=== PATIENT | female | born 2000 | race Caucasian/White ===

== ENCOUNTER 2024-11-29 10:26 | Day surgery (SDC) | payer MEDICAID, SELFPAY ==
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
[2024-11-28 14:21] VITALS: BP 115/70; PULSE 67; RESP 16; TEMP 36.1; O2SAT 96
[2024-11-28 14:25] VITALS: BP 107/55; BP 115/70; PULSE 63; RESP 16; O2SAT 98
[2024-11-29] VITALS (7 sets, daily range): BP systolic 102–124; BP diastolic 57–70; PULSE 50–76; RESP 12–16; TEMP 36.1; O2SAT 94–98; BMI 45.9
[2024-11-29 11:03] LABS: Internal QC Validated? YES +Cl - CLEAR BKGD; Pregnancy, Urine Negative Negative; Record Kit Lot#,Urine Preg 0000962302
[2024-11-29 11:07] LABS: Hematocrit 39.3 % (37-47); Hemoglobin 13.4 g/dL (12.0-15.0); Mean Corp Hgb Conc 34.1 g/dL (32-36); Mean Corpuscular Volume 87.5 fL (81-99); Mean Platelet Vol. 9.3 fl (6.2-12.0); Platelet Count 336 K/mm3 (150-450); RBC Distribution Width CV 13.1 % (11.6-14.6); RBC Distribution Width SD 42.0 fl (35.1-43.9); Red Blood Count 4.49 M/mm3 (4.2-5.4); White Blood Count 9.5 K/mm3 (4.4-11.0)
[2024-11-29] MEDS: Lactated Ringers 1,000 ML 15 ML IV ×2 (11:12→13:04)
[2024-11-29] MEDS: Ketorolac 30 MG/ML Syringe IV (11:13)
--- NOTE | 2024-11-29 11:35 | PCM.PRE.AN2 ---
ASA Classification* ASA Classification ASA Classification: 3 Assessment & Plan Anesthesia* Anesthesia Assessment Anesthesia Assessment: Discussed sedation and/or anesthesia options, risks, benefits, and alternatives with patient/parents/legal guardian/POA. Questions invited. The patient/parents/legal guardian/POA seems to understand and agrees to proceed with anesthesia plan. Reviewed the physical assessment, medical history, allergy history and patient home medications list prior to surgery/procedure/anesthetic and documented any changes. Performed airway and anesthesia risk assessments. Anesthesia Type Anesthesia Type: MAC History Source History Obtained from:: Patient and Chart Anesthesia Focused Assessment* Temperature: 97.0 F Pulse Rate: 60 Blood Pressure: 124/65 Respiratory Rate: 12 Pulse Ox: 98 Oxygen Delivery Method: Room Air Airway Assessment Mouth opens: >3 cm Mallampati Score: I Teeth Condition: Intact Neck Range of motion (ROM): Full ROM Labs Anesthesia Preop lab: CBC WBC 9.5 K/mm3 (4.4-11.0) 11/29/24 11:00 11/29/24 RBC 4.49 M/mm3 (4.2-5.4) 11/29/24 11:00 11/29/24 Hgb 13.4 g/dL (12.0-15.0) 11/29/24 11:00 11/29/24 Hct 39.3 % (37-47) 11/29/24 11:00 11/29/24 Plt Count 336 K/mm3 (150-450) 11/29/24 11:00 11/29/24 CHEMISTRY COAG Urine Test Negative Negative 11/29/24 10:45 11/29/24 Pre-Assessment Diagnosis/Proposed Procedure Planned Operative Procedure(s): Hysteroscopy,Dilation and Curettage, Liletta IUD insertion Anesthesia History Anesthesia History - ecclesiastical worker: Anesthesia History - ecclesiastical worker Hx Hospitalization No 11/26/24 15:25 Any Problems With Anesthesia No 11/26/24 15:25 Cholinesterase deficiency No 11/26/24 15:25 You/Your Family Experience No 11/26/24 15:25 fever (hyperthermia) with Relationship Recent Exposure to Contagious No 11/29/24 11:07 Disease Does patient have nerve No 11/26/24 15:25 stimulator Patient instructed to have device shut off --Does patient have Pacemaker No 11/29/24 11:07 or ICD? When Was Last Pacemaker Check QUESTION #4 FULL TEXT: You/Your Family Experience fever (hyperthermia) with Anesthesia Last Oral Intake Last Oral intake: Last Oral Intake NPO since 21:00 11/29/24 11:07 Meds taken in AM with sips of Yes 11/29/24 11:07 water? Meds patient instructed to take am of surgery PONV PONV - ecclesiastical worker: PONV - ecclesiastical worker Female Yes 11/26/24 15:25 HX of Motion Sickness No 11/26/24 15:25 HX of N/V After Surgery No 11/26/24 15:25 Non-Smoker Yes 11/26/24 15:25 Duration of Surgery greater No 11/26/24 15:25 than 60 minutes Number of Risk Factors 2 11/26/24 15:25 PONV Score Moderate Risk 11/26/24 15:25 Height & Weight Height & Weight: Anesthesia: Height & Weight Height 5 ft 2 in 11/29/24 11:07 Weight: 113.9 kg 11/29/24 11:07 Body Mass Index (BMI) 45.9 11/29/24 11:07 Respiratory Assessment Respiratory Assessment - ecclesiastical worker: Respiratory Tract Infection Hx - ecclesiastical worker Hx Respiratory Tract Infection No 11/26/24 15:25 STOP Sleep Apnea STOP Sleep Apnea - ecclesiastical worker: STOP Sleep Apnea - ecclesiastical worker Hx Hypertension No 11/26/24 15:25 Hx Sleep Apnea No 11/26/24 15:25 CPAP BIPAP Do you snore loudly (louder No 11/26/24 15:25 than talking or can be heard Do you often feel tired/ No 11/26/24 15:25 fatigued/ sleepy during daytime? Has anyone observed you stop No 11/26/24 15:25 breathing during sleep? STOP Results Negative 11/26/24 15:25 QUESTION #5 FULL TEXT : Do you snore loudly (louder than talking or can be heard through closed doors)? Tobacco Use History Tobacco Use History - ecclesiastical worker: Tobacco Use History - ecclesiastical worker Tobacco Use Smoking Status Never smoker 11/26/24 15:25 Hx Tobacco Use No 11/26/24 15:25 Years Smoking Packs Smoked per Day Smoking Cessation Date was within the last 15 years Hx Smoking Cessation Date Hx Smoking Cessation Counseling Hematologic Medial History Hematologic Hx - ecclesiastical worker: Hematologic Medical Hx - route jumper Hx of Blood Transfusion No 11/26/24 15:25 Hx of Transfusion in last 3 No 11/26/24 15:25 Months Date of Last Transfusion (if within last 3 months) Ever experience any problems No 11/26/24 15:25 with transfusion(s)? Specify any problems Hx of Preganancy in last 3 No 11/26/24 15:25 Months Nurse Filling Out Transfusion VCHRISTIN 11/26/24 15:25 & Questions: Date: 11/26/24 11/26/24 15:25 Time: 15:27 11/26/24 15:25 Patient unable to answer at this time (ie. confused, unrespo /Reproduction History /Reproductive History - ecclesiastical worker: /Reproductive Hx- ecclesiastical worker Hx Now No 11/26/24 15:25 Gestational Age (in weeks): EDC: Hx Hx Para Hx Section SAB No 11/26/24 15:25 Active Medications Active Medications: Current Medications Generic Name Dose Route Start Last Admin Trade Name Freq PRN Reason Stop Dose Admin Acetaminophen 1,000 mg 11/29/24 12:20 11/29/24 11:13 Acetaminophen 500 Mg Tablet PO 11/29/24 12:21 1,000 mg PREOP ONE Administration Lactated Ringer's 1,000 mls @ 15 mls/hr 11/29/24 10:45 11/29/24 11:12 IV 15 mls/hr .Q48H DEEPA Administration Ketorolac Tromethamine 30 mg 11/29/24 12:20 11/29/24 11:13 Ketorolac 30 Mg/Ml Syringe IV 11/29/24 12:21 30 mg PREOP ONE Administration Levonorgestrel 1 each 11/29/24 12:20 Levonorgestrel Iud (Liletta) INTRA-UTER 11/29/24 12:21 X1 ONE PFSH Medical History Wears glasses Tic disorder Anxiety Depression Kidney stones Anemia Migraine headache Hypotension Syncope Celiac disease Gastric reflux Non-smoker Home Medications ?Medication ?Instructions ?Recorded ?Last Taken ?Type ascorbic acid (vitamin C) 500 mg 500 mg PO DAILY 11/26/24 11/28/24 History tablet (Vitamin C) buspirone 15 mg tablet 15 mg PO TID 11/26/24 11/29/24 History cholecalciferol (vitamin D3) 25 25 mcg PO DAILY 11/26/24 11/28/24 History mcg (1,000 unit) capsule (Vitamin D3) ferrous sulfate 325 mg (65 mg 325 mg PO DAILY 11/26/24 11/28/24 History iron) tablet omeprazole 40 mg capsule,delayed 40 mg PO DAILY 11/26/24 11/29/24 History release pimozide 2 mg tablet 2 mg PO BID 11/26/24 11/29/24 History prazosin 1 mg capsule 2 mg PO QHS 11/26/24 11/28/24 History propranolol 10 mg tablet 10 mg PO BID 11/26/24 11/29/24 History trazodone 50 mg tablet 50 mg PO QHS PRN PRN insomnia 11/26/24 11/28/24 History ubrogepant 100 mg tablet (Ubrelvy) 100 mg PO PRN 11/26/24 Unknown History vilazodone 20 mg tablet 20 mg PO DAILY 11/26/24 11/28/24 History Allergy/AdvReac Type Severity Reaction Status Date / Time gluten Allergy Severe Upset Verified 11/29/24 11:05 Stomach morphine Allergy Severe Rash Verified 11/29/24 11:05 Surgical History History of esophagogastroduodenoscopy (EGD) Hx of colonoscopy History of tonsillectomy and adenoidectomy Hx of knee surgery Social History Smoking Status: Never smoker Review of Systems (Anesthesia) ROS Narrative System reviewed and no additional complaints, except as documented.
[2024-11-29] MEDS: Levonorgestrel IUD (Liletta) 1 EACH INTRA-UTER (12:20)
--- NOTE | 2024-11-29 12:20 | EMB_PTH ---
PATIENT: YASMANY MARLOW LOC: [facility] – [place] U#:[id number] AGE/SX: 23/F ROOM: RE11/29/[address]: Dr. Mague Khan MD : 2000 BED: DIS: 11/29/2024 SPEC #: [id number] RECD: 11/29/24 15:18 STATUS: JOLLY RERoni #: [id number] ORLY: 11/29/24 12:[address]: Mague Khan DEPT: SURGICAL PATHOLOGY RECD BY: Brian Aleman ENTERED: 11/30/24 10:21 SP TYPE: ENDOM BX/C OT DR: SUSAN CANALES, RESOLUTION SPECIALISTMalloryC Tissues: A - Endometrium, NOS Procedures: Surgery Specimen Level IV HEADER OPERATION: Hysteroscopy, D&C PRE-OP DIAGNOSIS: Menorrhagia with irregular cycle, dysmenorrhea TISSUE SUBMITTED: A- Endometrial curettings MICROSCOPIC DIAGNOSIS A. Endometrium, curettage: Proliferative endometrium Few fragments of benign endocervical and squamous cervical mucosa. MICROSCOPIC DESCRIPTION Slides are reviewed. GROSS DESCRIPTION Received in formalin labeled with the patient's name and date of . Designated as endometrial curettings is a 2.6 x 2.2 x 0.2 cm aggregate of guzman tissue fragments and mucoid material. Entirely submitted in 1 cassette. [place] 11/30/2024 CPT:14776
[2024-11-29] MEDS: Lidocaine 1% /Epi 1:100 (20ml) 20 ML Vial (13:23)
[2024-11-29] MEDS: Lubricating Jelly 60 GM Tube 30 GM (13:33)
[2024-11-29] MEDS: Midazolam 2 MG/2 ML Syringe IV (13:45)
--- NOTE | 2024-11-29 13:49 | DCINST_ITS ---
Discharge Instructions DC O2, CPAP, BIPAP needs Home O2 Discharge instructions: No Dressing / Incision Discharge Activity: Return to Normal Activity and May Take a Tub Bath (in 1 week) Return to work on:: 12/01/24 May shower in (days): 1 May resume sexual activity in: 1 week and 2 weeks Lifting Restrictions: none Dressing / Incision Call your doctor if your incision/area has: Sudden Increased Bleeding and Foul Smelling Discharge Call your doctor if you observe: Fever of 101 or Higher and Using more than 1 pad per hour (for 2 hrs in a row) Follow Up Care Please Follow Up With: Mague Khan MD When: You do not need a postop appointment. Call [phone] or send a [employer] message with any concerns. Follow up for annual exams or as needed Test Results: Test results from this visit will be discussed in further detail at your follow- up appointment, if applicable. Discharge Plan Admission Primary Reason for Your Visit: Hysteroscopy D&C with Liletta IUD insertion Attending Provider: Mague Khan Primary Care Provider: SUSAN CANALES Instructions Print Language: Amharic Discharge Orders/Prescriptions Prescriptions: No Action prazosin 1 mg capsule 2 mg PO QHS trazodone 50 mg tablet 50 mg PO QHS PRN PRN (Reason: insomnia) propranolol 10 mg tablet 10 mg PO BID pimozide 2 mg tablet 2 mg PO BID buspirone 15 mg tablet 15 mg PO TID vilazodone 20 mg tablet 20 mg PO DAILY omeprazole 40 mg capsule,delayed release(DR/EC) 40 mg PO DAILY ascorbic acid (vitamin C) [Vitamin C] 500 mg tablet 500 mg PO DAILY ferrous sulfate 325 mg (65 mg iron) tablet 325 mg PO DAILY Ubrelvy 100 mg tablet 100 mg PO PRN cholecalciferol (vitamin D3) [Vitamin D3] 25 mcg (1,000 unit) capsule 25 mcg PO DAILY Referrals / Follow Up: SUSAN CANALES NP-C [Primary Care Provider] - Disposition Disposition (needs filled in before D/C Order can be placed): Home, Self Care
[2024-11-29] MEDS: fentaNYL 100 MCG/2 ML Ampul IV (14:08)
--- NOTE | 2024-11-29 14:20 | OP.PCM_ITS ---
Problems Associated Problem List Diagnoses (1) Dysmenorrhea: (2) Menorrhagia with irregular cycle: Operative Report (Standard) Operative Information Date of Procedure: 11/29/24 Pre-Operative Diagnosis: dysmenorrhea, menorrhagia with irregular cycle Post-Operative Diagnosis: same Surgery/Procedure Performed: Hysteroscopy D&C with Liletta IUD insertion gunstock spray unit feeder: Yes Special Education Teaching Assistant: Lashonda Seals MS3 Tasks completed by kindergarten teacher assistant: Retracting Additional shipping and receiving assistant?: No Type of Anesthesia: MAC/Supplemental/Local RN Documented Start/Stop Times: Operation Date: 11/29/24 12:20 Case Time Into Pre-Op 11/29/24 10:31 Anesthesia Start 11/29/24 13:45 Into Room 11/29/24 13:45 Procedure Start 11/29/24 13:59 Procedure End 11/29/24 14:13 Anesthesia End 11/29/24 14:19 Out of Room 11/29/24 14:19 Out of Pre-Op Procedure Start Time: 13:59 Procedure Stop Time: 14:13 Select all DRAINS/GRAFTS/IMPLANTS that apply: None Special Medications: none Estimated Blood Loss: 5 cc Fluids Replaced: 700 cc Specimen collected: Yes Description of specimen(s) removed: endometrial curettings Description of surgery: The patient was taken to the OR where she was prepped and draped in dorsal lithotomy position. The weighted speculum was placed in the vagina and the anterior lip of the cervix was grasped with a single-tooth tenaculum. A paracervical block was administered with 1% lidocaine with 1-100,000 epinephrine solution. The cervix was dilated serially with Hegar dilators. The 5mm hysteroscope was placed into the uterine cavity and the above findings were noted. Bilateral tubal ostia were identified. The hysteroscope was removed. A gentle sharp curettage was done of the uterine cavity. The Liletta IUD was inserted in the usual sterile fashion. The uterus sounded to 8 cm. The IUD was deployed in the usual fashion and the strings cut to 2 cm. The instruments were removed from the vagina. The specimen was handed off and sent to pathology. All sponge and needle counts were correct. Vaginal sweep was performed by me. The patient was awakened and taken to the recovery room in stable condition. Hysteroscopic fluid deficit 100 cc of normal Findings: Endometrial cavity: Normal, no fibroids or polyps noted Cervix: Normal Vagina: Normal Surgical Findings: lush endometrium, normal cervix and vagina, no fibroids or polyps Complications Complications: No Admit VTE Documentation VTE Present on Admission: No VTE Mechan Device Prophylaxis: SCD's VTE Pharm Prophylaxis ordered?: No
--- NOTE | 2024-11-29 14:27 | PCM.POST.ANE ---
Anesthesia: Postop Eval I Current Vital Signs Temperature: 97 F Pulse Rate: 76 Blood Pressure: 115/70 Respiratory Rate: 16 Pulse Ox: 94 Oxygen Delivery Method: Room Air Assessment Airway patent: Yes Spontaneous unlabored respirations: Yes Mental status: Awake and Calm nausea: No Vomiting: No Anesthesia Complication: No Fluid Hydration Crystalloid volume administer (ml): 400 Total IV fluid infused: 400 Progress Note Anesthesia document: Postop Eval 1 completed: Yes
== END 2024-11-29 15:27 | disposition home or self-care (01) ==
LOC: SDC 10:28 → AC 10:30
PROVIDERS: Anesthesiology; PCP Nurse Practitioner Family; Referring Provider Obstetrics & Gynecology; Visit Provider Obstetrics & Gynecology
PROC: 0UDB8ZZ Extraction of Endometrium, Via Natural or Artificial Opening Endoscopic (ICD-10-PCS; CPT 58558; principal; 2024-11-29 12:05)
DX: N94.6 Dysmenorrhea, unspecified (principal); N92.1 Excessive and frequent menstruation with irregular cycle; K21.9 Gastro-esophageal reflux disease without esophagitis; Z79.899 Other long term (current) drug therapy
CPT/HCPCS: 58558; 58300; 00952; 81025; 85027; 88305; J2405